=== PATIENT | female | born 1955 | race Hispanic/Latino ===

== ENCOUNTER 2018-07-22 07:12 | Day surgery (SDC) | payer MEDICARE ==
[~2018-07-22] VITALS: Ht 157.5 cm; Wt 79.6 kg
[2018-07-22 08:32] VITALS: BP 140/58
[2018-07-22] MEDS ORDERED: IOHEXOL-350 50ML VIAL IV ONE (08:44)
[2018-07-22] MEDS ORDERED: LIDOCAINE HCL 2% PF 20 ML JEL DISP.SYRIN MM ONE (08:53)
[2018-07-22 09:40] VITALS: BP 125/64
[2018-07-22] MEDS ORDERED: KETOROLAC TROMETHAMINE 10 MG TABLET PO SCH (10:00)
[2018-07-22] MEDS ORDERED: FERR325T22 PO (10:04)
[2018-07-22] MEDS ORDERED: PRAV40TA3 PO (10:04)
[2018-07-22] MEDS ORDERED: OMEP40CA37 PO (10:04)
[2018-07-22] MEDS ORDERED: CHOL200074 PO (10:04)
[2018-07-22] MEDS ORDERED: ALEN70TA47 PO (10:04)
[2018-07-22] MEDS ORDERED: CALC1TAB2 PO (10:04)
[2018-07-22] MEDS ORDERED: MULT-1296 PO (10:04)
[2018-07-22] MEDS ORDERED: ASPI-555 PO (10:04)
[2018-07-22 10:11] VITALS: BP 137/68
== END 2018-07-22 10:50 | disposition home or self-care (01) ==
LOC: EDBD 07:12 → SUH 07:12 → DAH 07:12 → SUH 10:50
PROVIDERS: ATTEND Surgery
DX: N20.0 Calculus of kidney (principal); Z88.0 Allergy status to penicillin
CPT/HCPCS: 52310; 87088; A4358; J7030; Q9967